=== PATIENT | female | born 1990 | race Two or more races ===

== ENCOUNTER 2022-07-16 00:04 | Emergency (ER) | payer MEDICAID ==
[~2022-07-16] VITALS: Ht 157.5 cm; Wt 56.6 kg
[2022-07-16 00:49] LABS: Urine Bacteria FEW /hpf (None Seen); Urine Blood Negative /uL (Negative); Urine Specific Gravity 1.006 (1.001-1.035); Urine WBC 12 /hpf (0 - 5)
[2022-07-16 01:09] LABS: Basophils # (auto) 0 10 ^3/uL (0-0.2); Basophils % (auto) 0.5 % (0.0-2.0); Eosinophils # (auto) 0.1 10 ^3/uL (0-0.8); Hematocrit 40.7 % (36.0-46.0); Hemoglobin 13.7 g/dL (12.2-16.2); Lymphocytes # (auto) 2.7 10 ^3/uL (0.4-5.4); Lymphocytes % (auto) 27.9 % (10.0-50.0); Mean Corpuscular Hemoglobin 29.8 pg (28.0-32.0); Mean Corpuscular Hgb Conc. 33.7 g/dL (32.0-36.0); Mean Corpuscular Volume 88.4 fL (80.0-100.0); Monocytes # (auto) 0.8 10 ^3/uL (0-1.3); Monocytes % (auto) 8.4 % (0.0-12.0); Neutrophils # (auto) 6.1 10 ^3/uL (1.6-8.6); Neutrophils % (auto) 62.2 % (37.0-80.0); Red Blood Cells 4.61 10^6/uL (4.0-5.20); Red Cell Distribution Width 13.7 % (11.8-14.3); White Blood Cell 9.7 10^3/uL (4.4-10.8)
[2022-07-16 01:32] LABS: Albumin 3.2 g/dL (3.4-5.0); BUN/Creatinine Ratio 14.9 (10.0-20.0); Potassium 4.1 mmol/L (3.5-5.1)
[2022-07-16 01:40] LABS: Bilirubin, Total 0.2 mg/dL (0.2-1.0); Total Protein 6.9 g/dL (6.4-8.2)
[2022-07-16 02:57] VITALS: BP 103/63
[2022-07-16] MEDS ORDERED: IBUP800T26 PO (03:38)
[2022-07-16] MEDS ORDERED: TAM04C PO (03:38)
[2022-07-16] MEDS ORDERED: CEPH-510 PO (03:38)
[2022-07-16] MEDS ORDERED: KETOROLAC TROMETH 60MG/2ML VIAL IM ONE (03:45)
== END 2022-07-16 03:47 | disposition home or self-care (01) ==
LOC: ER 00:04
DX: N20.0 Calculus of kidney (principal); N39.0 Urinary tract infection, site not specified; Z32.02 Encounter for pregnancy test, result negative
CPT/HCPCS: 36415; 74176; 80053; 81001; 81025; 83690; 85025; J1885

== ENCOUNTER 2023-05-13 10:25 | Emergency (ER) | payer MEDICAID ==
[~2023-05-13] VITALS: Ht 157.5 cm; Wt 59.0 kg
[~2023-05-13 10:25] MED LIST: CEPH-510 PO; IBUP-1455 PO; TAMS-35 PO
[2023-05-13] MEDS ORDERED: AMOX875T3 PO (11:00)
[2023-05-13] MEDS ORDERED: PRED20TA2 PO (11:00)
[2023-05-13 11:23] VITALS: BP 115/69; PULSE 79; RESP 18; TEMP 97.6; O2SAT 99
== END 2023-05-13 11:25 | disposition home or self-care (01) ==
LOC: ER 10:25
DX: H65.03 Acute serous otitis media, bilateral (principal); Z79.2 Long term (current) use of antibiotics; Z79.1 Long term (current) use of non-steroidal anti-inflammatories (NSAID); Z79.899 Other long term (current) drug therapy